=== PATIENT | female | born 1945 | race Caucasian/White ===

== ENCOUNTER 2019-09-03 08:27 | Day surgery (SDC) | payer MEDICARE, BC ==
[2019-09-03] MEDS ORDERED: LIDOCAINE 2% MDV (20MG/ML) 20ML VIAL IV ONE (08:28)
[2019-09-03] MEDS ORDERED: PROPOFOL 10 MG/ML VIAL IV ONE (08:28)
--- NOTE | 2019-09-03 17:20 | Operative Note ---
OPERATION: COLONOSCOPY to the cecum with cold snare polypectomy. INDICATION: History of adenomatous polyps. The patient returns at this time after 5 years for surveillance. ANESTHESIA: Intravenous sedation was administered by the department of anesthesiology and included Diprivan titrated to effect. PROCEDURE: Following informed consent from this alert individual including a discussion of the risks and benefits of the procedure and an opportunity for the patient to ask questions, the patient was in the left lateral decubitus position. A digital rectal examination was performed. No abnormalities were noted. Following this, the Olympus MSM806 video colonoscope was inserted into the rectum without resistance. The rectal mucosa had a normal appearance with normal folds and distensibility. The colonoscope was advanced up through the bowel to the level of the cecum without much difficulty. Throughout the bowel the mucosa appeared normal, the folds were normal, and the bowel was fairly well distensible. A few scattered diverticula were seen in the sigmoid region. The cecum was defined by noting the appendiceal orifice and ileocecal valve. From the base of the cecum, the colonoscope was then slowly withdrawn. At the cecum itself, there was a small 4 mm polyp noted which was removed with cold snare polypectomy. The polyp was retrieved. The colonoscope was further withdrawn. Overall, the colon preparation was good. A few scattered diverticula were seen in the sigmoid colon but no other mucosal changes appreciated throughout. Retroflexion in the rectum was endoscopically unremarkable. The endoscope was straightened and removed. The patient tolerated the procedure well and was returned to the recovery area in stable condition. IMPRESSION: 1. A 4 mm cecal polyp removed with cold snare polypectomy. 2. Sigmoid diverticulosis. RECOMMENDATIONS: The patient was advised she should receive a copy of her pathology report at home in the next 2-3 weeks. If not, she was asked to call my office to review the results of testing today. Followup will be with Dr. Gabe Verdugo. As always, thank you for allowing me to participate in the care of your patient. KARO
== END 2019-09-03 11:00 | disposition home or self-care (01) ==
LOC: HOP 08:27
PROVIDERS: ATTEND Internal Medicine Gastroenterology
DX: Z12.11 Encounter for screening for malignant neoplasm of colon (principal); Z86.010 Personal history of colon polyps; D12.0 Benign neoplasm of cecum